=== PATIENT | female | born 1995 | race Two or more races ===

== ENCOUNTER 2021-09-11 18:44 | Emergency (ER) | payer MEDICAID, OTHER ==
[~2021-09-11] VITALS: Ht 167.6 cm; Wt 68.0 kg
[2021-09-11] MEDS ORDERED: cefTRIAXone SOD 1,000 MG VL IM ONE (19:15)
[2021-09-11 20:27] VITALS: BP 125/70
[2021-09-11] MEDS ORDERED: CEPH-509 PO (21:53)
== END 2021-09-11 20:34 | disposition home or self-care (01) ==
LOC: ER 18:47
DX: L03.115 Cellulitis of right lower limb (principal)
CPT/HCPCS: 96372; 99283; J0696